=== PATIENT | female | born 1965 | race Caucasian/White ===

== ENCOUNTER 2019-07-21 05:47 | Day surgery (SDC) | payer OTHER, SELFPAY ==
[2019-07-21] VITALS (12 sets, daily range): BP systolic 125–180; BP diastolic 72–101; PULSE 71–86; RESP 15–23; TEMP 36.1–36.6; O2SAT 92–100
[2019-07-21] MEDS: sodium chloride 0.9% 1,000 ML 30 ML IV (06:37)
--- NOTE | 2019-07-21 06:49 | ANES.PREANE2 ---
Pre-Anesthetic Assessment Pre-Anesthetic Assessment: Height/Weight: Height 1.56 m Weight 93.44 kg Temp Pulse Resp BP 97.8 F 86 18 152/101 07/21/19 06:16 07/21/19 06:16 07/21/19 06:16 07/21/19 06:16 Preop Diagnosis: Right rotator cuff tear Proposed Procedure: Operation Date: 07/21/19 08:30 Proposed Procedures s Rotator Cuff Repair 39033 S46.011A(Right) - Hawk Mcdonnell MD p Shoulder Arthroscopy(Right) - Hawk Mcdonnell MD Last intake: Intake Last Liquid Date 07/20/19 Last Liquid Time 21:00 Last Solid Date 07/20/19 Last Solid Time 21:00 Social: Packs per day: 2 Pack years: 12 Comment: quit 24 years of age Exam: Pre-Anes Outpt Exam: alert, oriented x 3, clear to auscultation bilaterally and regular rate & rhythm Airway: Submandibular: WNL Cervical ROM: Other MP: 2 Dentition: Loose Additional comments: right front bottom GI: GI: GERD and Hiatus hernia Metabolic: Metabolic: DM Comments: borderline off meds 3 years Neuropsych: Neuropsych: LANDON Anesthetic Plan: ASA status: 2 Anesthesia: Eval. 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
[2019-07-21] MEDS: midazolam 1 mg/mL INJ 5 ML 5 MG IVP (07:16)
[2019-07-21] MEDS: fentaNYL 50 mcg/mL INJ 2mL 100 MCG IVP (07:17)
--- NOTE | 2019-07-21 09:19 | PM.HPUD ---
H&P update H&P Update: DATE OF SURGERY/PROCEDURE: 07/21/19 DATE H&P PERFORMED: 07/12/19 H&P UPDATE INFORMATION: H&P completed within last 30 days PREOP DIAGNOSIS: Right rotator cuff tear PRIMARY INDICATION FOR PROCEDURE: Traumatic tear right rotator cuff PLANNED PROCEDURE: Operation Date: 07/21/19 08:30 Proposed Procedures s Rotator Cuff Repair 29826 S46.011A(Right) - Hawk Mcdonnell MD p Shoulder Arthroscopy(Right) - Hawk Mcdonnell MD Full H&P Perinent History: Family History: Family History (Updated 07/12/19 @ 15:07 by Martina Irene LPN) Mother Cancer Hypertension Father Cancer Hypertension Denies family history of Diabetes CAD (coronary artery disease) Clotting disorder Dementia Hyperlipidemia Psychiatric illness Chronic kidney disease (CKD) Suicide Anesthesia complication Bleeding disorder Family history of premature coronary artery disease Lung disease Stroke Social History: Social History Smoking and tobacco status: former smoker Quit status (tobacco): has quit using tobacco Year quit tobacco: 10+ years ago Alcohol intake: current Alcohol intake frequency: holidays/special occasions only Current occupation: home health Aide
[2019-07-21] MEDS: EPINEPHrine 1 mg/mL INJ 3 MG XX (10:27)
--- NOTE | 2019-07-21 11:59 | PM.OP ---
Operative Report Date of procedure: July 21, 2019 Pre-op Diagnosis: Right rotator cuff tear Post-op Diagnosis: Right rotator cuff tear, impingement right shoulder, instability right biceps tendon Post-op Findings: As above Procedure Done: Arthroscopic right rotator cuff repair, arthroscopic right subacromial decompression, arthroscopic right biceps tenodesis Implants: 4.5 mm Helicoil anchors x2, 5.5 mm Multi-fix anchors x2, Q fix anchors x2 Pathology: none sent Surgeon: Hawk Mcdonnell Anesthesia: General and Nerve Block (Interscalene block) Estimated blood loss (mL): 10 Complications: None Findings: The patient had a large tear of her right rotator cuff beginning just anterior to the biceps tendon and extending posteriorly over a distance of approximately 2 cm with approximately 2 cm of tendinous retraction. The tear extended very near the bicipital groove and concerns were raised about biceps instability thus a biceps tenodesis was accomplished. She had subacromial spurring, type II acromion Brief History: The patient is a 54-year-old female with a traumatic right rotator cuff tear. She had significant pain and weakness rotator cuff repair was chosen to improve pain and function. Procedure: Patient was given an interscalene block in holding. She was taken to the operating room and positioned in the lateral position with her right arm in 15 pounds of traction. She was given 2 g of Ancef. A timeout was performed. The shoulder was initially entered through a posterior portal. The large tear of the rotator cuff was identified with extension very near the bicipital groove. A anterior working portal was made just inferior to the biceps tendon. As instability the biceps was a concern a decision was made to proceed with a tenodesis. Utilizing the Hopper and Nephew Werewolf probe the biceps was released from the superior labrum. The scope was then directed to the subacromial space. An additional anteriorlateral portal was made to allow access to the subacromial space and bicipital groove. An incisor shaver is introduced and the undersurface of the acromion outline. A 5.5 mm acromionizer was used and approximately 5 mm of anterior and inferior acromion removed converting the acromion to type I morphology. Attention was then focused on the biceps. An additional lower anterior portal was made overlying the bicipital groove with debridement through the anterior portal and visualization through the anterior lateral portal. The biceps tendon was identified and grasped from the posterior portal. An incisor shaver was used to debride the bicipital groove to trabecular bone. Through the anterior portal a Q fix anchor was placed passing just medial to the biceps tendon. 1 limb was grasped doubled over in past anterior to the biceps out the cannula. The free end of the suture attached to that loop was then shuttled through that exposed loop and secured drawing the biceps tendon down to the debrided bone with a luggage tag style stitch. This was repeated approximately 1 cm proximal with a second Q fix anchor. Attention was then focused to the rotator cuff. Utilizing an incisor shaver the footprint was debrided down to a trabecular bone. A stab wound a 4.5 mm Helicoil anchor was placed in the anterior medial footprint. A Hopper and [employer] FirstPass suture passer was used to shuttle each limb of Ultratape through the rotator cuff approximately 6 mm from the medial edge of the tendon with each suture passed approximately a centimeter from each other. A second Hopper and Nephew Helicoil anchor was placed in the posterior medial footprint and sutures passed identical fashion. Those sutures were secured drawing the medial rotator cuff to bone. 1 tape from each anchor was then brought through the lateral cannula. They were shuttled through a Hopper and Nephew Multifix anchor and tightened bringing the lateral rotator cuff to bone. This was repeated with a posterior Hopper and Nephew Multifix anchor. The repair was probed and found to be stable. The shoulder was irrigated with saline. Portals were closed with 3-0 Prolene. Sterile dressings were applied. Patient was extubated and taken to the recovery room in stable condition.
[2019-07-21] MEDS: ondansetron 2 mg/ML SDV 2 mL 4 MG IVP ×2 (12:06→12:27)
--- NOTE | 2019-07-21 12:36 | SUR.PHASEI ---
1158 PATIENT TO PACU AT THIS TIME. DRESSING TO RIGHT SHOULDER, NOTED TO BE SATURATED. SLING IN PLACE. RADIAL PULSE PRESENT AND STRONG, CAP REFILL INTACT. PATIENT PLACED ON SIMPLE MASK AT 8L, SP02, 97%. RR EVEN AND UNLABORED. PER DR. WALLACE, LEAVE DRESSING IN PLACE TO RIGHT SHOULDER, UNTIL PRIOR TO DISCHARGE.
[2019-07-21] MEDS: metoclopramide 5 mg/mL SDV 2 mL 10 MG IVP (12:43)
--- NOTE | 2019-07-21 12:43 | SUR.PHASEI ---
1239 PATIENT TO OPS, REGLAN GIVEN. PATIENT C/O HEADACHE, WANTING DRINK AND PAIN PILL. DRESSING INTACT TO RIGHT SHOULDER, SATURATED, WITH SLING. KENDELL NOTIFIED ABOUT DRESSING, PER DR. WALLACE.
== END 2019-07-21 14:20 | disposition home or self-care (01) ==
PROVIDERS: Family Provider Family Medicine; Visit Provider Orthopaedic Surgery
PROC: (CPT 29826; principal; 2019-07-21 08:30)
PROC: (CPT 29805; 2019-07-21 08:30)
DX: M75.101 Unspecified rotator cuff tear or rupture of right shoulder, not specified as traumatic (principal); M25.811 Other specified joint disorders, right shoulder; M25.311 Other instability, right shoulder; Z82.49 Family history of ischemic heart disease and other diseases of the circulatory system; Z87.891 Personal history of nicotine dependence
CPT/HCPCS: 29826; 29827; 29828; 12345; 96374; 96375; C1713; J0171; J0690; J2001; J2250; J2405; J2704; J2765; J2795; J3010; J3490; J7030

== ENCOUNTER 2019-11-17 07:36 | Day surgery (SDC) | payer OTHER, SELFPAY ==
[2019-11-16 13:16] VITALS: BMI 47.2
[2019-11-17] VITALS (11 sets, daily range): BP systolic 107–167; BP diastolic 59–92; PULSE 70–87; RESP 13–20; TEMP 36.2–36.4; O2SAT 92–100
[2019-11-17] MEDS: sodium chloride 0.9% 1,000 ML 30 ML IV (08:30)
--- NOTE | 2019-11-17 08:35 | ANES.PREANE2 ---
Pre-Anesthetic Assessment Pre-Anesthetic Assessment: Height/Weight: Height 1.55 m Weight 113.398 kg Temp Pulse Resp BP Pulse Ox 97.6 F 87 18 125/73 96 11/17/19 08:25 11/17/19 08:25 11/17/19 08:25 11/17/19 08:25 11/17/19 08:25 Preop Diagnosis: Right shoulder stiffness status post rotator cuff repair Proposed Procedure: Operation Date: 11/17/19 09:35 Proposed Procedures p right shoulder arthroscopy with release of adhesions (32252) Z98.890(Right) - Hawk Mcdonnell MD Familial anesthetic complications: PONV Was Beta Fela taken within 24 hours: N/A Last intake: Intake Last Liquid Date 11/17/19 Last Liquid Time 06:00 Last Solid Date 11/16/19 Last Solid Time 19:00 Social: Social History: No alcohol and No tobacco Comment: former smoker Exam: Pre-Anes Outpt Exam: alert, oriented x 3, clear to auscultation bilaterally and regular rate & rhythm Airway: Cervical ROM: WNL MP: 2 Dentition: Other (missing) Additional comments: large neck circumfernce Pulmonary: Pulmonary: None reported CV/HEM: CV/HEM: HTN : : None reported Hepatic: Hepatic: None reported GI: GI: None reported Metabolic: Metabolic: DM and Morbid obesity Musc/skel: Musc/skel: None reported Neuropsych: Neuropsych: Neuropathy (R hand) and None reported Anesthetic Plan: ASA status: 2 Anesthesia: General and Regional (specify below) Risk of > 500 ml blood loss (7ml/kg in children): No PFSH Anesthesia PFSH: Family History Mother Cancer Hypertension Father Cancer Hypertension Denies family history of Diabetes CAD (coronary artery disease) Clotting disorder Dementia Hyperlipidemia Psychiatric illness Chronic kidney disease (CKD) Suicide Anesthesia complication Bleeding disorder Family history of premature coronary artery disease Lung disease Stroke Social History Smoking and tobacco status: former smoker Quit status (tobacco): has quit using tobacco Year quit tobacco: 10+ years ago Alcohol intake: current Alcohol intake frequency: holidays/special occasions only 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
--- NOTE | 2019-11-17 08:38 | W.PM.OPSUD ---
Surgery/Procedure H&P Update DATE OF PROCEDURE: November 17, 2019 DATE H&P PERFORMED: 11/08/19 H&P UPDATE INFORMATION: I have reviewed H&P completed within last 30 days PREOP DIAGNOSIS: Right shoulder stiffness status post rotator cuff repair PLANNED PROCEDURE: Operation Date: 11/17/19 09:35 Proposed Procedures p right shoulder arthroscopy with release of adhesions (22460) Z98.890(Right) - Hawk Mcdonnell MD
[2019-11-17 08:41] LABS: Glucose Point of Care 338 mg/dL (70-110)
[2019-11-17] MEDS: midazolam 1 mg/mL INJ 2 mL 2 MG IVP (08:50)
--- NOTE | 2019-11-17 08:58 | ANES.PROC ---
Anesthesia Procedures Procedure/Date: 11/17/19 Nerve Block ^: Nerve Block 1: Main Anesthesia: general anesthesia Time Out Performed: Yes Consent: requested by attending/covering physician, from patient, from other, risks and benefits reviewed and patient agrees to proceed Nerve block location: interscalene (R) Anesthesia monitors applied: pulse oximetry, BP cuff and oxygen Nerve block position: semi sitting Anesthetic Used: ropivicaine 0.5% and with decadron (3 mg) Amount of anesthesia used (mL): 20 Ultrasound used to: visualize and ID interscalene groove Nerve Stimulator Used?: No Interscalene/Femoral BLK: 2 stimuplex 22 g needle used for position and inplane approach Injection: neg aspiration of heme Patient Tolerated Procedure: well Complications: none
[2019-11-17] MEDS: insulin regular-human 100 units/1 mL 5 UNIT IVP (09:13)
[2019-11-17] MEDS: EPINEPHrine 1 mg/mL INJ 2 MG XX (09:51)
--- NOTE | 2019-11-17 10:30 | P.OP_ITS ---
Operative Report Date of procedure: November 17, 2019 Pre-op Diagnosis: Right shoulder stiffness status post rotator cuff repair Post-op diagnosis: same Post-op Findings: Intact right rotator cuff tear with partial-thickness articular residual tearing Procedure Done: Arthroscopic repair right rotator cuff with bioinductive implant Implants: Hopper and Nephew Regeneten bioinductive implant Pathology: none sent Surgeon: Hawk Mcdonnell Anesthesia: General and Nerve Block (Interscalene block) Estimated blood loss (mL): 10 Complications: None Findings: Patient's shoulder can be flexed only to approximately 120 degrees and externally rotated 30 degrees stiff resistance was encountered. The patient had dense subacromial adhesions. Her rotator cuff repair was intact however there was some residual articular sided thinning of the cuff at the site of repair. Disposition: PACU Brief History: The patient is a 54-year-old female who underwent arthroscopic right rotator cuff repair and biceps tenodesis with residual pain and stiffness. Diagnostic arthroscopy was chosen to release adhesions and improve motion and assess the quality of repair Procedure: An interscalene block was provided in holding. The patient was taken to the operating room and given a general anesthesia. She was given 2 g of Ancef. Distally the shoulder was a gently manipulated to improve motion. Distal resistance was felt approximately 120 degrees of flexion. Gentle manipulation was applied with improvement in forward flexion 150 degrees identical to the contralateral side. The elbow was then placed at the slide and the arm externally rotated 60 degrees identical to the contralateral side. Patient was then placed in the lateral position with the right arm in gentle traction. The arm was prepped and draped in the usual fashion. A posterior po rtal was made in line with the previous scar scope cannula placed into the glenohumeral joint. Anterior scar was opened and the size of shaver introduced anteriorly. Hematoma and debris's were removed. The glenohumeral joint was free of degenerative changes. Labral attachments were healthy. The biceps tendon was absent consistent with the previous arthroscopic tenotomy. Previously placed sutures from the suture anchor were placed with some thinning noted of the rotator cuff in the area of the repair. The scope was then moved to the subacromial space and a anterior inflow cannula placed. A lateral working portal was opened through the previous scar. The Hopper and [employer] Werewolf probe was used to release subacromial adhesions and outlining the acromion. A 5.5 mm acromionizer was introduced to lightly debride the anterior undersurface acromion to create vascularity for healing. The area of thinning of the rotator cuff was identified. Through the anterior lateral portal a Hopper and Nephew Regeneten graft was introduced. It was fixed medially anteriorly and posteriorly with a soft tissue staple and laterally with 2 bone susi reinforcing the area of rotator cuff healing and poor biologic quality. The shoulder was irrigated with saline. Portals were closed with 3-0 Prolene. Sterile dressings were applied. Patient was extubated taken recovery in stable condition.
[2019-11-17] MEDS: ondansetron 2 mg/ML SDV 2 mL 4 MG IVP ×2 (11:51→12:25)
[2019-11-17] MEDS: metoclopramide 5 mg/mL SDV 2 mL 10 MG IVP (13:00)
[2019-11-17] MEDS: scopolamine 1.5 Patch 1 PATCH TRANSDERMA (13:20)
== END 2019-11-17 13:20 | disposition home or self-care (01) ==
PROVIDERS: Visit Provider Orthopaedic Surgery
PROC: (CPT 29805; principal; 2019-11-17 09:35)
DX: M25.611 Stiffness of right shoulder, not elsewhere classified (principal); I10 Essential (primary) hypertension; E66.01 Morbid (severe) obesity due to excess calories; Z68.42 Body mass index [BMI] 45.0-49.9, adult; E11.40 Type 2 diabetes mellitus with diabetic neuropathy, unspecified; Z87.891 Personal history of nicotine dependence; Z82.49 Family history of ischemic heart disease and other diseases of the circulatory system
CPT/HCPCS: 29827; 12345; 36416; 82962; 96374; C1713; J0171; J0690; J1100; J1815; J2250; J2405; J2710; J2765; J2795; J3010; J3490; J7030

== ENCOUNTER 2020-08-02 14:21 | Emergency (ER) | payer SELFPAY ==
[2020-08-02] VITALS (7 sets, daily range): BP systolic 146–192; BP diastolic 84–134; PULSE 78–86; RESP 14–20; TEMP 37.1; O2SAT 94–99; BMI 37.8
--- NOTE | 2020-08-02 14:50 | CT_ITS ---
WS: [id number] CT HEAD TECHNIQUE: Noncontrast CT of the head obtained from the skullbase to the vertex. CLINICAL INFORMATION: left face/arm tingling. COMPARISON: None. DLP: 720.[address] scans at [facility] use at least one of these dose optimization techniques: automat ed exposure control; mA and/or kV adjustment per patient size (includes targeted exams where dose is matched to clinical indication); or iterative reconstruction. FINDINGS: No evidence of intracranial hemorrhage or mass effect. Ventricular system and basal cisterns are crawford nt. Mild small vessel changes with mild parenchymal volume loss. Low-attenuation foci in the right po sterior limb internal capsule the largest measuring 6 mm. This is age indeterminant but likely chroni c. This can be Followed up with MRI. No extra-axial fluid collections. No evidence of mass or mass effect. Normal blake-white differentiati on. Paranasal sinuses and mastoid air cells are well aerated. .Normal visualized soft tissues. CT/CT head wo con* [id number] IMPRESSION: 1. No evidence of intracranial hemorrhage or mass effect. 2. Mild small vessel changes. Mild parenchymal volume loss. 3. Small lacunar infarcts in the posterior limb right internal capsule age-ind eterminate but likely chronic. This can be followed up with MRI. Largest focus measures 6 mm. 4. No other significant findings.
--- NOTE | 2020-08-02 14:50 | XR_ITS ---
WS: [id number] Exam: XR chest 1V portable [id number] Date/Time of Exam: 08/02/2020 3:08 PM Reason For Exam: reduced breath sounds Comparison 03/05/2016. Findings: The lungs are clear and fully expanded. Costophrenic angles are sharp. No infiltrates. Bronchovascula r relief appears normal. Cardiac silhouette is unremarkable. Bony elements are intact. XR/XR chest 1V portable [id number] IMPRESSION: Unremarkable chest radiograph.
--- NOTE | 2020-08-02 15:00 | ECG_ITS ---
[facility] Test Date: 2020-08-02 Pat Name: Rain Stevenson Department: Room: Gender: Female Holistic Nutritionist: : 1965 Requested By: Cristobal Wynn Order Number: [id number] Reading MD: ELIEZER NIETO Measurements Intervals [place] Rate: 80 P: 0 TX: 168 QRS: -11 QRSD: 100 T: 63 QT: 377 QTc: 437 Interpretive Statements SINUS RHYTHM Compared to ECG 03/05/2016 12:18:31 No significant changes Electronically Signed On 08-02-2020 20:07:28 OFFICE SUPPORT ASSOCIATE by ELIEZER NIETO [id number]
[2020-08-02 15:17] LABS: ABG PH Result 7.43 (7.35-7.45); Arterial Blood Gas Hematocrit 46.4 % (37-47); Base Excess ABG 4.4 mmol/L (-2.0-2.0); Blood Gas Allen Test Pos; Blood Gas Operator Identificat CAK; Blood Gas Sample Site Brachial, left; Blood Gas Sample Type Arterial; HCO3 ABG 29.4 mmol/L (22-26); Oxygen Device ROOM AIR; PO2 ABG 69.7 mmHg (80.0-100.0)
[2020-08-02 15:32] LABS: Add Urine Microscopic? NO
[2020-08-02 15:35] LABS: Bilirubin Urine Neg (Negative); Blood Urine Neg (Negative); Glucose Urine UA 4+ (Normal); Ketones Urine Negative (Negative); Leukocyte Esterase Urine Negative (Negative); Nitrate Urine Negative (Negative); Protein Urine Neg (Negative); Urine Appearance Clear (CLEAR); Urine Color Straw (Yellow); Urobilinogen Urine Norm (Negative); pH Urine 5 (5-7)
[2020-08-02 15:44] LABS: Amphetamines Screen Urine Negative (Negative); Barbiturates Screen Urine Negative (Negative); Benzodiazepines Screen Urine Negative (Negative); Cocaine Screen Urine Negative (Negative); Opiate Screen Urine Negative (Negative); PCP Screen Urine Negative (Negative); THC Screen Urine Negative (Negative)
[2020-08-02 15:50] LABS: Basophils % 0.3 %; Eosinophils # 0.1 10^3/uL (0.0-0.8); Eosinophils % 1.5 %; Hematocrit 46.5 % (37.0-47.0); Hemoglobin 15.2 g/dL (11.5-15.3); Lymphocytes % 34.8 %; Mean Corpuscular HGB Conc 32.7 g/dL (30.0-36.0); Mean Corpuscular Hemoglobin 26.2 pg (28.0-34.0); Mean Corpuscular Volume 80.2 fL (81-99); Monocytes # 0.6 10^3/uL (0.2-0.9); Monocytes % 6.6 %; Neutrophils # 4.89 10^3/uL (1.8-7.7); Neutrophils % 56.5 %; Nucleated Red Blood Cells % 0 %; Platelet Count 264 10^3/cmm (130-400); Red Cell Distribution Width 13.1 % (12.1-15.1); White Blood Count 8.7 10^3/uL (4.0-10.0)
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
[2020-08-02 16:08] LABS: Alanine Aminotransferase 25 U/L (0-33); Albumin Level 3.8 g/dL (3.5-5.2); Alkaline Phosphatase 117 IU/L (35-105); Anion Gap 12.7 (5-19); Aspartate Amino Transferase 17 U/L (0-32); Blood Urea Nitrogen 10 mg/dL (6-20); Carbon Dioxide 28 mmol/L (22-29); Chloride 97 mmol/L (98-107); Globulin 3.8 g/dL (1.3-4.6); Glomerular Filtration Rate 128.6 mL/min (90-130); Glucose 383 mg/dL (65-115); Osmolality Calculated 293 mOsm/kg (285-295); Potassium 3.7 mmol/L (3.5-5.1); Sodium 134 mmol/L (136-145); Total Bilirubin 0.3 mg/dL (0.15-1.2); Total Protein 7.6 g/dL (6.6-8.7)
[2020-08-02 16:09] LABS: Troponin(5th) Baseline 6 ng/L (0-10)
[2020-08-02 16:11] LABS: Alcohol Level < 10 mg/dL (0-10)
[2020-08-02 16:14] LABS: Ketone (Acetest) Serum Negative (Negative)
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
[2020-08-02] MEDS: acetaminophen 325 mg Tablet 650 MG PO (16:46)
--- NOTE | 2020-08-02 17:49 | CTR_ITS ---
PROCEDURE INFORMATION: Exam: CT Angiography Head With Contrast, Arteries Exam date and time: 08/02/2020 7:04 PM Age: 55 years old Clinical indication: Numbness; Additional info: Possible CVA TECHNIQUE: Imaging protocol: Computed tomography angiography of the head with intravenous contrast. 3D rendering (Not supervised by radiologist): MIP and/or 3D reconstructed images were created by the technologist. Radiation optimization: All CT scans at this facility use at least one of these dose optimization techniques: automated exposure control; mA and/or kV adjustment per patient size (includes targeted exams where dose is matched to clinical indication); or iterative reconstruction. Contrast material: OMNI 350; Contrast volume: 95 ml; Contrast route: INTRAVENOUS (IV); COMPARISON: No relevant prior studies available. RADIATION DOSE METRICS: Total DLP (mGy-cm): 2357.31 FINDINGS: ANTERIOR CIRCULATION: Right internal carotid artery: Unremarkable. Intracranial segment is patent with no significant stenosis. No aneurysm. Right middle cerebral artery: Unremarkable. No occlusion or significant stenosis. No aneurysm. Right anterior cerebral artery: Unremarkable. No occlusion or significant stenosis. No aneurysm. Left internal carotid artery: Unremarkable. Intracranial segment is patent with no significant stenosis. No aneurysm. Left middle cerebral artery: Unremarkable. No occlusion or significant stenosis. No aneurysm. Left anterior cerebral artery: Unremarkable. No occlusion or significant stenosis. No aneurysm. POSTERIOR CIRCULATION: Right vertebral artery: Unremarkable. No occlusion or significant stenosis. No aneurysm. Left vertebral artery: Unremarkable. No occlusion or significant stenosis. No aneurysm. Basilar artery: Unremarkable. No occlusion or significant stenosis. No aneurysm. Right posterior cerebral artery: Unremarkable. No occlusion or significant stenosis. No aneurysm. Left posterior cerebral artery: Unremarkable. No occlusion or significant stenosis. No aneurysm. Brain: No definite mass, mass effect, or midline shift. Cerebral ventricles: No ventriculomegaly. Bones/joints: Unremarkable. No acute fracture. Soft tissues: Unremarkable. IMPRESSION: No large vessel stenosis or occlusion. PROCEDURE INFORMATION: Exam: CT Angiography Neck With Contrast Exam date and time: 08/02/2020 7:04 PM Age: 55 years old Clinical indication: Numbness; Additional info: Possible CVA TECHNIQUE: Imaging protocol: Computed tomography angiography of the neck with intravenous contrast. 3D rendering (Not supervised by radiologist): MIP and/or 3D reconstructed images were created by the technologist. Radiation optimization: All CT scans at this facility use at least one of these dose optimization techniques: automated exposure control; mA and/or kV adjustment per patient size (includes targeted exams where dose is matched to clinical indication); or iterative reconstruction. Contrast material: OMNI 350; Contrast volume: 95 ml; Contrast route: INTRAVENOUS (IV); COMPARISON: No relevant prior studies available. RADIATION DOSE METRICS: Total DLP (mGy-cm): 2357.31 FINDINGS: Right common carotid artery: No stenosis. No dissection or occlusion. Right internal carotid artery: No stenosis of the extracranial segment. No dissection or occlusion. Right external carotid artery: No occlusion or stenosis of the origin. Right vertebral artery: No stenosis. No dissection or occlusion. Left common carotid artery: No stenosis. No dissection or occlusion. Left internal carotid artery: No stenosis of the extracranial segment. No dissection or occlusion. Left external carotid artery: No occlusion or stenosis of the origin. Left vertebral artery: No stenosis. No dissection or occlusion. Dental: Multiple large right mandibular teeth periapical lucencies. Bones/joints: No acute fracture. Soft tissues: Normal. No significant soft tissue swelling. CT/CT angio headneck* [id number] IMPRESSION: No measurable carotid artery stenosis or arterial occlusion in the neck. REFERENCES: NASCET CRITERIA. The degree of internal carotid artery stenosis is based on NASCET criteria. Normal is no stenosis. Mild is less than 50% stenosis. Moderate is 50-69% stenosis. Severe is 70% to 99% stenosis. Total occlusion is no detectable patent lumen. Radiation Dose CTDIVOL = (mGy): DLP = 2357.31 (mGy-cm)
[2020-08-02] MEDS: lisinopril 20 mg Tablet PO (18:25)
[2020-08-02] MEDS: atorvastatin 40 mg Tablet PO (18:25)
[2020-08-02] MEDS: amlodipine 5 mg Tablet PO (18:25)
[2020-08-02] MEDS: iohexol 350 mg/mL 100 mL Btl IV (19:42)
--- NOTE | 2020-08-02 20:22 | PC.NURSE ---
patient given food per hcp approval
[2020-08-02] MEDS: cloNIDine 0.1 mg Tablet 0.2 MG PO (20:34)
--- NOTE | 2020-08-03 16:00 | DCPLANNER ---
assistant account manager had message to speak with patient about getting established with a primary care physician. assistant account manager called phone number [phone] - unable to speak with patient at this time. assistant account manager left a voicemail for patient to return machine adjuster leader case trim phone call.
--- NOTE | 2020-08-10 12:21 | DCPLANNER ---
Patient returned telehealth case manager phone call, stating that she wanted to get established with a primary care physician. Patient stated that she lives in [place] and would like to be established at [facility], did not matter which clinic [facility] or [facility]. food services manager called the [facility], patient had been seen at the clinic in the past. A follow up appointment was scheduled for Friday, August 14, 2020 at 10:00 with Bridget. food services manager called patient and gave patient the appointment information.
--- NOTE | 2020-08-25 14:27 | DCPLANNER ---
Patient had a followup appointment scheduled for 08.14.20 with Cheryl Mcnulty - patient did attend appointment.
== END 2020-08-02 21:48 | disposition home or self-care (01) ==
PROVIDERS: Emergency Provider Family Medicine
DX: I63.9 Cerebral infarction, unspecified (principal); E11.9 Type 2 diabetes mellitus without complications; I10 Essential (primary) hypertension; Z91.14 Patient's other noncompliance with medication regimen; R20.2 Paresthesia of skin; Z79.4 Long term (current) use of insulin; Z87.891 Personal history of nicotine dependence
CPT/HCPCS: 36600; 70450; 70496; 70498; 71045; 80053; 80306; 80307; 81003; 82009; 82803; 84484; 85025; 93005; 96372; 99284; J1815; Q9967